=== PATIENT | female | born 1985 | race Two or more races ===

== ENCOUNTER 2023-02-01 19:53 | Emergency (ER) | payer MEDICAID, OTHER ==
[~2023-02-01] VITALS: Ht 152.4 cm; Wt 79.5 kg
[2023-02-01 20:35] LABS: Basophils # (auto) 0.1 10 ^3/uL (0-0.2); Basophils % (auto) 0.7 % (0.0-2.0); Eosinophils # (auto) 0.2 10 ^3/uL (0-0.8); Eosinophils % (auto) 2.5 % (0.0-7.0); Hematocrit 39.3 % (36.0-46.0); Hemoglobin 13.6 g/dL (12.2-16.2); Lymphocytes # (auto) 3.4 10 ^3/uL (0.4-5.4); Lymphocytes % (auto) 38.7 % (10.0-50.0); Mean Corpuscular Hemoglobin 31.2 pg (28.0-32.0); Mean Corpuscular Hgb Conc. 34.7 g/dL (32.0-36.0); Monocytes # (auto) 0.4 10 ^3/uL (0-1.3); Monocytes % (auto) 4.4 % (0.0-12.0); Neutrophils # (auto) 4.8 10 ^3/uL (1.6-8.6); Neutrophils % (auto) 53.7 % (37.0-80.0); Red Blood Cells 4.36 10^6/uL (4.0-5.20); Red Cell Distribution Width 13.1 % (11.8-14.3); White Blood Cell 8.9 10^3/uL (4.4-10.8)
[2023-02-01] MEDS ORDERED: ASPirin 325 MG TAB PO ONE (20:45)
[2023-02-01 20:49] LABS: Partial Thromboplastin Time 27.3 SEC (24.5-34.5); Prothrombin Time 10.5 sec (9.3-11.8)
[2023-02-01 20:57] LABS: Alanine Aminotransferase 64 U/L (7-40); Alkaline Phosphatase 58 U/L (46-116); Anion Gap 8 (5-15); Aspartate Aminotransferase 19 U/L (13-40); BUN/Creatinine Ratio 29.4 (10.0-20.0); Blood Urea Nitrogen 20 mg/dL (9-23); Calcium 10.2 mg/dL (8.5-10.1); Carbon Dioxide 27 mmol/L (20-30); Chloride 105 mmol/L (98-107); Glucose 74 mg/dL (74-106); Potassium 4.2 mmol/L (3.5-5.1); Sodium 140 mmol/L (136-145)
[2023-02-01 20:58] LABS: Albumin 4.8 g/dL (3.2-4.8); Bilirubin, Total 0.3 mg/dL (0.2-1.0); Total Protein 6.9 g/dL (5.7-8.2)
[2023-02-01 21:30] LABS: Magnesium 2.1 mg/dL (1.6-2.6)
[2023-02-01 21:46] LABS: Urine Bacteria FEW /hpf (None Seen); Urine Blood Negative /uL (Negative); Urine Clarity Clear (Clear); Urine Color Colorless (Yellow); Urine Protein, UAD Negative (Negative); Urine Specific Gravity 1.021 (1.001-1.035); Urine Urobilinogen Normal (Negative); Urine WBC <1 /hpf (0 - 5)
[2023-02-02] MEDS ORDERED: LORA-1121 PO (00:01)
[2023-02-02 00:58] VITALS: BP 142/67; PULSE 65; RESP 16; TEMP 98.2; O2SAT 99
== END 2023-02-02 01:01 | disposition home or self-care (01) ==
LOC: ER 19:53
DX: F41.9 Anxiety disorder, unspecified (principal); R07.89 Other chest pain; R00.2 Palpitations; Z79.899 Other long term (current) drug therapy
CPT/HCPCS: 36415; 71045; 80053; 81001; 83735; 83880; 84443; 84484; 85025; 85610; 85730; 93005

== ENCOUNTER 2024-03-12 18:30 | Emergency (ER) | payer MEDICAID ==
[~2024-03-12] VITALS: Ht 172.7 cm; Wt 83.7 kg
[~2024-03-12 18:30] MED LIST: LORA-1121 PO
[2024-03-12 18:48] VITALS: BP 117/75; PULSE 75; RESP 18; TEMP 97.8; O2SAT 95
[2024-03-12] MEDS ORDERED: AZIT-43 PO (20:35)
[2024-03-12] MEDS ORDERED: ACET500T58 PO (20:35)
[2024-03-12] MEDS ORDERED: PRED20TA2 PO (20:35)
--- NOTE | 2024-03-12 20:37 | ED.PDOC ---
SOB-HPI HPI Comments 38-YEAR-OLD FEMALE PRESENTS TO ER WITH COMPLAINTS OF COUGH X 10 DAYS. PATIENT REPORTS SHE HAS BEEN EXPERIENCING A COUGH AND CONGESTION X 10 DAYS WITH ASSOCIATED INTERMITTENT FEVER X FOUR DAYS. REPORTS THAT SHE ALSO NOTICED "BLOOD TINGED SPUTUM" WITH HER COUGH X 1 DAY. DENIES ANY CURRENT PAIN. REPORTS THAT SHE HAS BEEN TAKING "AMOXICILLIN" THAT SHE GOT FROM HER MOM WITHOUT RELIEF. PATIENT PRESENTS TO ER AFEBRILE, AMBULATORY ON ARRIVAL, WITH STEADY GAIT, IN NO DISTRESS WITH VITALS STABLE AND NOTES SHE HAS BEEN AROUND HER DAUGHTER WHO HAS ALSO BEEN EXPERIENCING A COUGH/CONGESTION AND FEVER. DENIES SHORTNESS OF BREATH, CHEST PAIN, PALPITATIONS, SORE THROAT, HEADACHE, DIZZINESS, N/V OR ANY FURTHER SYMPTOMS/COMPLAINTS Chief Complaint: Flu like Time Seen by MD: 18:32 Primary Care Provider: NONE Reviewed notes: Nurses Notes, Medications, Allergies Information Source: Patient Mode of Arrival: Ambulatory Past Medical History PAST MEDICAL HISTORY: Denies Surgical History: Denies all surgeries SAMPLE CHECKER History: No Pertinent SAMPLE CHECKER History Family History Family History: Unknown Social History Smoker: Non-Smoker Alcohol: Denies ETOH Use Drugs: Denies Drug Use Lives In: Home Constitutional: reports: others ( STATED IN HPI) EENTM: reports: others ( STATED IN HPI) Respiratory: reports: others ( STATED IN HPI) Cardiovascular: denies: chest pain, dizzy spells, diaphoresis, Dyspnea on exertion, edema, irregular heart beat, left arm pain, lightheadedness, palpitations, PND, syncope, others Gastrointestinal: denies: abdomen distended, abdominal pain, blood streaked bowels, constipated, diarrhea, dysphagia, difficulty swallowing, hematemesis, melena, nausea, poor appetite, poor fluid intake, rectal bleeding, rectal pain, vomiting, others Genitourinary: denies: abnormal vagina bleeding, burning, dyspareunia, dysuria, flank pain, frequency, hematuria, incontinence, pain, , vagina discharge, urgency, others Neurological: denies: dizziness, fainting, headache, left sided numbness, left sided weakness, numbness, paresthesia, pre-existing deficit, right sided numbness, right sided weakness, seizure, speech problems, tingling, tremors, weakness, others Musculoskeletal: denies: back pain, gout, joint pain, joint swelling, muscle pain, muscle stiffness, neck pain, others Integumetry: denies: bruises, change in color, change in hair/nails, dryness, laceration, lesions, lumps, rash, wounds, others Allergic/Immunocompromised: denies: Difficulty Healing, Frequent Infections, Hives, Itching, others Hematologic/Lymphatic: denies: anemia, blood clots, easy bleeding, easy bruising, swollen glands, others Endocrine: denies: excessive hunger, excessive sweating, excessive thirst, excessive urination, flushing, intolerance to cold, intolerance to heat, unexplained weight gain, unexplained weight loss, others Psychiatric: denies: anxiety, bipolar disorder, depression, hopeless, panic disorder, schizophrenia, sleepless, suicidal, others Physical Exam General Appearance: No Apparent Distress HEENT: Normal ENT Inspection, PERRL/EOMI, Pharynx Normal, TMs Normal Neck: Full Range of Motion, Non-Tender, Normal Respiratory: Chest Non-Tender, Lungs Clear, No Accessory Muscle Use, No Respiratory Distress, Normal Breath Sounds Cardiovascular: No Murmur, No Gallop, Regular Rate/Rhythm Breast Exam: Deferred Gastrointestinal: Non Tender, No Pulsatile Mass, Soft Genitalia: Deferred Pelvic: Deferred Rectal: Deferred Extremities: Normal capillary refill, Normal range of motion Neurologic: Alert, gear repair supervisor II-XII nml as Tested, No Motor Deficits, Normal Affect, Normal Mood, No Sensory Deficits Cerebellar Function: Normal Reflexes: Normal Skin: Dry, Normal Color, Warm Lymphatic: No Adenopathy Was a procedure done? Was a procedure done?: No Sedation Sedation?: No Differential Dx Differential Diagnosis: Pneumonia, Pulmonary Embolism, Respiratory Distress, Pharyngitis X-Ray, Labs, Meds, VS Vital Signs Date Time Temp Pulse Resp B/P (MAP) Pulse Ox O2 Delivery O2 Flow Rate FiO2 03/12/24 18:48 Room Air 03/12/24 18:48 97.8 75 18 117/75 (89) 95 97.8 03/12/24 18:48 97.8 75 18 117/75 (89) 95 Lab Test 03/12/24 20:45 Range/Units White Blood Count 5.1 4.4-10.8 10^3/uL Red Blood Count 4.32 4.0-5.20 10^6/uL Hemoglobin 13.6 12.2-16.2 g/dL Hematocrit 39.1 36.0-46.0 % Mean Corpuscular Volume 90.6 80.0-100.0 fL Mean Corpuscular Hemoglobin 31.5 28.0-32.0 pg Mean Corpuscular Hemoglobin Concent 34.8 32.0-36.0 g/dL Red Cell Distribution Width 13.1 11.8-14.3 % Platelet Count 253 140-450 10^3/uL Mean Platelet Volume 7.7 6.9-10.8 fL Neutrophils (%) (Auto) 43.9 37.0-80.0 % Lymphocytes (%) (Auto) 49.1 10.0-50.0 % Monocytes (%) (Auto) 4.7 0.0-12.0 % Eosinophils (%) (Auto) 1.8 0.0-7.0 % Basophils (%) (Auto) 0.5 0.0-2.0 % Neutrophils # (Auto) 2.3 1.6-8.6 10 ^3/uL Lymphocytes # (Auto) 2.5 0.4-5.4 10 ^3/uL Monocytes # (Auto) 0.2 0-1.3 10 ^3/uL Eosinophils # (Auto) 0.1 0-0.8 10 ^3/uL Basophils # (Auto) 0 0-0.2 10 ^3/uL Nucleated Red Blood Cells 0.4 % D-Dimer, Quantitative 0.26 0.0-0.49 mg/L FEU Sodium Level 139 136-145 mmol/L Potassium Level 3.8 3.5-5.1 mmol/L Chloride Level 106 98-107 mmol/L Carbon Dioxide Level 26 20-31 mmol/L Anion Gap 7 5-15 Blood Urea Nitrogen 7 L 9-23 mg/dL Creatinine 0.72 0.550-1.02 mg/dL Glomerular Filtration Rate Calc 111 >90 mL/min BUN/Creatinine Ratio 9.7 L 10.0-20.0 Serum Glucose 129 H 74-106 mg/dL Calcium Level 9.6 8.7-10.4 mg/dL PATIENT: KLEBER OROZCOT: [id number]: [id number] : 1985 LOC: ER ROOM / BED: / AGE / SEX: 38 / F ADM STATUS: REG ER SERVICE 21 ORDERING PHYSICIAN: JAXON NARVAEZ PROCEDURE(s): CXR1 - CHEST XRAY 1 VIEW REASON: COUGH ORDER NUMBER(s): [id number], ACCESSION NUMBER(s): [id number] EXAMINATION: Chest x-ray 1 view CLINICAL HISTORY: COUGH COMPARISON: XY CHEST PORTABLE on DOS: 02/01/23 FINDINGS: Central interstitial prominence, more notable on the left. Subtle left perihilar opacities. No definite pleural effusions or pneumothorax. The cardiomediastinal silhouette appears within normal limits. IMPRESSION: Left perihilar infiltrates may be of infectious etiology. Recommend follow-up to resolution. ATED BY: ALIRIO WOLF MD DICTATED DATE/TIME: 03/12/242101 SIGNED BY: ALIRIO WOLF MD SIGNED DATE/TIME: 03/12/242101 CC: CBC REVIEWED - NORMAL BMP REVIEWED WITHOUT ANY SIGNIFICANT ABNORMALITIES D-DIMER REVIEWED - NORMAL CHEST X-RAY REVIEWED ROCEPHIN 1 G IM ORDERED SOLU-MEDROL 125 MG IM ORDERED PATIENT DENIED ANY SHORTNESS OF BREATH/CHEST PAIN, HAD IMPROVEMENT IN SYMPTOMS AND NON-TOXIC APPEARING/ IN NO DISTRESS DURING ER VISIT/PRIOR TO DISCHARGE ADVISED TO DRINK PLENTY OF FLUIDS ADVISED TO DISCONTINUE AMOXICILLIN AND TAKE THE FOLLOWING MEDICATIONS BELOW PRESCRIBED ADVISED ON REPEAT CHEST X-RAY IN 1 WEEK ADVISED TO FOLLOW UP WITH PCP IN 1-2 DAYS PATIENT VERBALIZED UNDERSTANDING AND AGREEABLE WITH CURRENT PLAN OF CARE ADVISED TO RETURN TO ER IMMEDIATELY IF SYMPTOMS WORSEN Images Reviewed?: Images reviewed and evaluated by me Time of 1ST Reevaluation: 20:12 Reevaluation 1ST: N/A Time of 2ND Reevaluation: 20:30 Reevaluation 2ND: Improved Patient Education/Counseling: Diagnosis, Treatment, Prognosis, Need For Follow Up Family Education/Counseling: No Family Present Departure 1 Departure Time of Disposition: 20:32 Impression: Primary Impression: Pneumonia Qualified Codes: J18.9 - Pneumonia, unspecified organism Disposition: HOME / SELF CARE / HOMELESS Condition: Stable e-Prescriptions Albuterol Sulfate (VENTOLIN MDI) 90 Mcg Ih 2 PUFF IN Q4HPRN PRN, #1 INH 0 Refills Prov: JAXON NARVAEZ 03/12/24 Prednisone (Prednisone) 20 Mg Tab 20 MG PO BID for 5 Days, #10 TAB 0 Refills Prov: JAXON NARVAEZ 03/12/24 Acetaminophen (Acetaminophen) 500 Mg Tab 500 MG PO Q4HPRN, #30 TAB 0 Refills Prov: JAXON NARVAEZ 03/12/24 Azithromycin (Azithromycin) 250 Mg Tab 250 MG PO DAILY MDD 500 for 5 Days, #6 TAB 0 Refills 2 TABLETS ORALLY ON DAY ONE, THEN 1 TABLET ORALLY DAILY FOR 4 DAYS Prov: JAXON NARVAEZ 03/12/24 Discharged With: Self Critical Care Note Critical Care Time?: No Stability Stability form required: No Heart Score Heart Score: Heart Score Response (Comments) Value History N/A 0 EKG N/A 0 Age N/A 0 Risk Factors N/A 0 Troponin N/A 0 Total 0 JAXON NARVAEZ Mar 12, 2024 20:37
--- NOTE | 2024-03-12 21:05 | DVH ---
EXAMINATION: Chest x-ray 1 view CLINICAL HISTORY: COUGH COMPARISON: XY CHEST PORTABLE on DOS: 02/01/23 FINDINGS: Central interstitial prominence, more notable on the left. Subtle left perihilar opacities. No definite pleural effusions or pneumothorax. The cardiomediastinal silhouette appears within hussain l limits. IMPRESSION: Left perihilar infiltrates may be of infectious etiology. Recommend follow-up to resolution.
[2024-03-12 21:07] LABS: Basophils # (auto) 0 10 ^3/uL (0-0.2); Basophils % (auto) 0.5 % (0.0-2.0); Eosinophils # (auto) 0.1 10 ^3/uL (0-0.8); Eosinophils % (auto) 1.8 % (0.0-7.0); Hematocrit 39.1 % (36.0-46.0); Hemoglobin 13.6 g/dL (12.2-16.2); Lymphocytes # (auto) 2.5 10 ^3/uL (0.4-5.4); Lymphocytes % (auto) 49.1 % (10.0-50.0); Mean Corpuscular Hemoglobin 31.5 pg (28.0-32.0); Mean Corpuscular Hgb Conc. 34.8 g/dL (32.0-36.0); Mean Corpuscular Volume 90.6 fL (80.0-100.0); Monocytes # (auto) 0.2 10 ^3/uL (0-1.3); Monocytes % (auto) 4.7 % (0.0-12.0); Neutrophils # (auto) 2.3 10 ^3/uL (1.6-8.6); Neutrophils % (auto) 43.9 % (37.0-80.0); Nucleated Red Blood Cells % 0.4 %; Platelet Count (auto) 253 10^3/uL (140-450); Red Blood Cells 4.32 10^6/uL (4.0-5.20); Red Cell Distribution Width 13.1 % (11.8-14.3); White Blood Cell 5.1 10^3/uL (4.4-10.8)
[2024-03-12 21:16] LABS: Chloride 106 mmol/L (98-107); Potassium 3.8 mmol/L (3.5-5.1); Sodium 139 mmol/L (136-145)
[2024-03-12 21:17] LABS: Anion Gap 7 (5-15); Carbon Dioxide 26 mmol/L (20-31)
[2024-03-12 21:18] LABS: Calcium 9.6 mg/dL (8.7-10.4)
[2024-03-12 21:23] LABS: BUN/Creatinine Ratio 9.7 (10.0-20.0)
[2024-03-12 21:26] LABS: Blood Urea Nitrogen 7 mg/dL (9-23); Glucose 129 mg/dL (74-106)
[2024-03-12] MEDS ORDERED: ALBUAER3 IN (22:20)
[2024-03-12] MEDS: methylPREDNISolone SOD SUCC 125 MG/2 ML VL IM ONE (22:56)
[2024-03-12] MEDS: cefTRIAXone SOD 1,000 MG VL IM ONE (22:56)
== END 2024-03-12 22:53 | disposition home or self-care (01) ==
LOC: ER 18:34
DX: J18.9 Pneumonia, unspecified organism (principal)
CPT/HCPCS: 36415; 71045; 80048; 85025; 85379; 96372; 99284; J0696; J2919

== ENCOUNTER 2024-11-29 22:18 | Emergency (ER) | payer MEDICAID ==
[~2024-11-29] VITALS: Ht 152.4 cm; Wt 79.4 kg
[~2024-11-29 22:18] MED LIST changes: +ACET500T58 PO; +ALBUAER3 IN; +AZIT-43 PO; +PRED20TA2 PO
--- NOTE | 2024-11-29 23:07 | ED.PDOC ---
History of Present Illness HPI Comments This is a 39-year-old obese female with history of recurrent groin and axillary abscesses, who does not follow up with a physician, presented with the ER with a chief complaint of pain in the left armpit after her abscess not ruptured. Patient reports that she developed left armpit abscess last week after shaving, which increased in size to the point where it burst yesterday and drained yellowish material, denies fever, chills, nausea, vomiting, any systemic illnesses at this time. Patient has been taking amoxicillin tablet every 8 hour for the past 4 days. Patient has a appointment with primary care physician on Tuesday Does not smoke, drink, drug use. Lives with Patient seen and examined in triage area, left armpit - skin is indurated, thickened, 1 cm erythematous tissue noted but no drainage or associated abscess seen. Patient advised to follow up with primary care physician, maintain good hygiene, [id number] antibiotics topical, continue with amoxicillin PO course. Chief Complaint: Abscess Time Seen by MD: 22:25 Primary Care Provider: NONE Allergies: Coded Allergies: NO KNOWN ALLERGIES (Unverified , 02/01/23) Home Meds Active Scripts Albuterol Sulfate (VENTOLIN MDI) 90 Mcg Ih, 2 PUFF IN Q4HPRN PRN, #1 INH 0 Refills Prov:JAXON NARVAEZ 03/12/24 Prednisone (Prednisone) 20 Mg Tab, 20 MG PO BID for 5 Days, #10 TAB 0 Refills Prov:JAXON NARVAEZ 03/12/24 Acetaminophen (Acetaminophen) 500 Mg Tab, 500 MG PO Q4HPRN, #30 TAB 0 Refills Prov:JAXON NARVAEZ 03/12/24 Azithromycin (Azithromycin) 250 Mg Tab, 250 MG PO DAILY MDD 500 for 5 Days, #6 TAB 0 Refills 2 TABLETS ORALLY ON DAY ONE, THEN 1 TABLET ORALLY DAILY FOR 4 DAYS Prov:JAXON NARVAEZ 03/12/24 Lorazepam (ATIVAN TABLET) 0.5 Mg Tb, 1 TAB PO BID, #8 TAB as needed fo anxiety no driving Prov:MERCY CHO PRODUCER ASSISTANT 02/02/23 Information Source: Patient Mode of Arrival: Ambulatory Past Medical History PAST MEDICAL HISTORY: Denies Past Medical History (Other): Recurrent groin and armpit abscess Surgical History: Denies all surgeries CFO History: No Pertinent CFO History Family History Family History: Unknown Social History Smoker: Non-Smoker Alcohol: Denies ETOH Use Drugs: Denies Drug Use Lives In: Home Constitutional: denies: chills, diaphoresis, fatigue, fever, malaise, sweats, weakness, others EENTM: denies: blurred vision, double vision, ear bleeding, ear discharge, ear drainage, ear pain, ear ringing, eye pain, eye redness, hearing loss, mouth pain, mouth swelling, nasal discharge, nose bleeding, nose congestion, nose pain, photophobia, tearing, throat pain, throat swelling, voice changes, others Respiratory: denies: cough, hemoptysis, orthopnea, SOB at rest, shortness of breath, SOB with excertion, stridor, wheezing, others Cardiovascular: denies: chest pain, dizzy spells, diaphoresis, Dyspnea on exertion, edema, irregular heart beat, left arm pain, lightheadedness, palpitations, PND, syncope, others Gastrointestinal: denies: abdomen distended, abdominal pain, blood streaked bowels, constipated, diarrhea, dysphagia, difficulty swallowing, hematemesis, melena, nausea, poor appetite, poor fluid intake, rectal bleeding, rectal pain, vomiting, others Genitourinary: denies: abnormal vagina bleeding, burning, dyspareunia, dysuria, flank pain, frequency, hematuria, incontinence, pain, , vagina discharge, urgency, others Neurological: denies: dizziness, fainting, headache, left sided numbness, left sided weakness, numbness, paresthesia, pre-existing deficit, right sided numbnes s, right sided weakness, seizure, speech problems, tingling, tremors, weakness, others Musculoskeletal: denies: back pain, gout, joint pain, joint swelling, muscle pain, muscle stiffness, neck pain, others Integumetry: reports: lesions (Left armpit has 1 cm erythematous lesion, drained abscess, skin indurated, right armpit has scar strauss) Allergic/Immunocompromised: denies: Difficulty Healing, Frequent Infections, Hives, Itching, others Hematologic/Lymphatic: denies: anemia, blood clots, easy bleeding, easy bruising, swollen glands, others Endocrine: denies: excessive hunger, excessive sweating, excessive thirst, excessive urination, flushing, intolerance to cold, intolerance to heat, unexplained weight gain, unexplained weight loss, others Psychiatric: denies: anxiety, bipolar disorder, depression, hopeless, panic disorder, schizophrenia, sleepless, suicidal, others Physical Exam Exam Comments Left armpit has 1 cm erythematous lesion, drained abscess, skin indurated, right armpit has scar strauss General Appearance: No Apparent Distress, Normal HEENT: Normal ENT Inspection, Pharynx Normal, TMs Normal Neck: Full Range of Motion, Non-Tender, Normal, Normal Inspection Respiratory: Chest Non-Tender, Lungs Clear, No Accessory Muscle Use, No Respira tory Distress, Normal Breath Sounds Cardiovascular: No Edema, No JVD, No Murmur, No Gallop, Normal Peripheral Pulses, Regular Rate/Rhythm Breast Exam: Deferred Gastrointestinal: No Organomegaly, Non Tender, No Pulsatile Mass, Normal Bowel Sounds, Soft Genitalia: Deferred Pelvic: Deferred Rectal: Deferred Extremities: No calf tenderness, Normal capillary refill, Normal inspection, Normal range of motion, Non-tender, No pedal edema Musculoskeletal : Apperance: Normal Neurologic: Alert, therapist rrt II-XII nml as Tested, No Motor Deficits, Normal Affect, Normal Mood, No Sensory Deficits Cerebellar Function: Normal Reflexes: Normal Skin: Dry, Normal Color, Warm Lymphatic: No Adenopathy Was a procedure done? Was a procedure done?: No Differential Dx Considerations may include: Superficial abscess, cellulitis, hidradenitis suppurativa, granulomatous infection X-Ray, Labs, Meds, VS Vital Signs Date Time Temp Pulse Resp B/P (MAP) Pulse Ox O2 Delivery O2 Flow Rate FiO2 11/29/24 22:19 98.0 62 16 135/81 97 98.0 Time of 1ST Reevaluation: 23:10 Reevaluation 1ST: Improved Consultation: PCP Patient Education/Counseling: Diagnosis, Treatment, Prognosis, Need For Follow Up Family Education/Counseling: No Family Present Comments Use warm compresses to reduced swelling and help drainage Avoid squeezing or cutting the bumps year cell 5 intact conversant inflammation and scarring [id number] NSAIDs can help pain and inflammation. Where loose breathable clothing to reduce friction wear gently with mild clean softeners, harsh scrubbing can worsen irritation avoid shaving over active lesions-trimming is safer Use fragments free deodorants or stopped using them if t they irritate the area Follow up with PRIMARY CARE PHYSICIAN to get complete workup and further diagnosis and management SEPSIS Sepsis Screen Date sepsis recognized/suspect: Nov 29, 2024 Time Sepsis recognized/suspect: 2221 Recent Procedure: No On Antibiotic Therapy: No Respiratory Rate >20: No Heart Rate >90: No Temp<36 C (96.8 F) or >38.3 C: No SBP <90 or MAP <65 mmHG: No New Acute Mental Status Change: No Is the patient on CPAP, BIPAP,: No Vital Signs Date Time Temp Pulse Resp B/P (MAP) Pulse Ox O2 Delivery O2 Flow Rate FiO2 11/29/24 22:19 98.0 62 16 135/81 97 98.0 Departure 1 Departure Time of Disposition: 23:20 Impression: Primary Impression: Abscess Disposition: HOME / SELF CARE / HOMELESS Condition: Stable Additional Instructions: Continue with amoxicillin course, complete the course as prescribed Use warm compresses to reduced swelling and help drainage Avoid squeezing or cutting the bumps year cell 5 intact conversant inflammation and scarring [id number] NSAIDs can help pain and inflammation. Where loose breathable clothing to reduce friction wear gently with mild clean softeners, harsh scrubbing can worsen irritation avoid shaving over active lesions-trimming is safer Use fragments free deodorants or stopped using them if t they irritate the area Follow up with PRIMARY CARE PHYSICIAN to get complete workup and further diagnosis and management Discharged With: Self Critical Care Note Critical Care Time?: No Stability Stability form required: SATISH Carballo RESIDENT Nov 29, 2024 23:07
[2024-11-29 23:26] VITALS: BP 152/73; PULSE 51; RESP 16; TEMP 98.6; O2SAT 95
== END 2024-11-29 23:07 | disposition home or self-care (01) ==
LOC: ER 22:18
DX: L02.412 Cutaneous abscess of left axilla (principal); E66.9 Obesity, unspecified; Z79.899 Other long term (current) drug therapy; Z79.52 Long term (current) use of systemic steroids; Z68.34 Body mass index [BMI] 34.0-34.9, adult